=== PATIENT | female | born 1945 | race American Indian/Alaskan Native ===

== ENCOUNTER 2017-02-27 14:58 | Emergency (ER) | payer MEDICARE ==
[2017-02-27 15:38] VITALS: BP 127/70
[2017-02-27] MEDS ORDERED: FUL-GLO OP ONE (17:11)
[2017-02-27] MEDS ORDERED: TETRACAINE 0.5% OU ONE (17:11)
--- NOTE | 2017-02-27 17:27 | Emergency Department Report ---
HPI - General Chief Complaint: Eye Problems Time Seen by Provider: 02/27/17 16:59 - HPI HPI: This is a 71-year-old Afro-[place]ish female who presents to the emergency department with complaint of progressively worsening right eye and eyelid swelling and irritation past 3 days. Patient says that the eye is slightly blurry. She denies any significant pain and says it is more of an irritation. She tried some Visine and some witch shemar to the right eye without much relief. She denies any known trauma but says that she plays with her grandson who is 5 months old and sometimes he will accidentally hit her around the face and eye. She denies any fever, headache, nausea, vomiting. No recent travel or sick contacts at home. She has a primary care doctor but has not seen them regarding the symptoms. She does not have a recycling manager. Patient is wearing reading glasses from a store because her prescription glasses are currently broken. ED Past Medical Hx - Past Medical History Previous Medical History?: Yes Hx Hypertension: Yes Hx CVA: Yes (no residual deficits) Hx Diabetes: Yes - Surgical History Past Surgical History?: Yes Additional Surgical History: hysterectomy - Social History Smoking Status: Never Smoker Substance Use Type: Prescribed - Medications Home Medications: Home Medications Medication Instructions Recorded Confirmed Last Taken Type Atorvastatin Calcium [Lipitor] 1 tab PO QHS 04/16/14 04/16/14 Unknown History Butalb/Acetaminophen/Caffeine 1 tab PO Q6H PRN 04/16/14 04/16/14 Unknown History [[id number] 50-300-40] Ciprofloxacin HCl [Ciprofloxacin 500 mg PO Q12H #20 tab 04/16/14 Unknown Rx TAB] Gabapentin [Neurontin] 1 tab PO BID 04/16/14 04/16/14 Unknown History Gabapentin [Neurontin] 3 tab PO QHS 04/16/14 04/16/14 Unknown History Losartan [Cozaar] 1 tab PO DAILY 04/16/14 04/16/14 Unknown History Metformin HCl [Glucophage] 1 tab PO BID 04/16/14 04/16/14 Unknown History Metoprolol [Lopressor TAB] 1 tab PO BID 04/16/14 04/16/14 Unknown History Topiramate [Topamax SPRINKLE] 2 tab PO QHS 04/16/14 04/16/14 Unknown History amLODIPine [Norvasc] 1 tab PO DAILY 04/16/14 04/16/14 Unknown History glipiZIDE [glipiZIDE ER] 1 tab PO TID 04/16/14 04/16/14 Unknown History levETIRAcetam [Keppra] 1 tab PO Q12H 04/16/14 04/16/14 Unknown History Sulfamethoxazole/Trimethoprim 1 each PO BID #14 tablet 02/27/17 Unknown Rx [Bactrim DS TAB] Tobramycin 0.3% [Tobrex] 1 drop OD Q6H #1 bottle 02/27/17 Unknown Rx ED Review of Systems ROS: Stated complaint: RT EYE SWOLLEN/RED /PAIN Other details as noted in HPI Comment: All other systems reviewed and negative Constitutional: denies: chills, fever Eyes: eye pain (irritation), eye discharge, vision change (slightly blurry right eye) ENT: denies: ear pain, throat pain Respiratory: denies: cough, shortness of breath, wheezing Cardiovascular: denies: chest pain, palpitations Gastrointestinal: denies: abdominal pain, nausea, diarrhea Genitourinary: denies: urgency, dysuria, discharge Musculoskeletal: denies: back pain, joint swelling, arthralgia Skin: change in color (right eyelid redness and swelling). denies: pruritus Neurological: denies: headache, weakness, paresthesias Physical Exam - Physical Exam Vital Signs: Vital Signs 02/27/17 15:34 Temperature 98.1 F Pulse Rate 80 Respiratory 16 Rate Blood Pressure 127/70 O2 Sat by Pulse 98 Oximetry Physical Exam: GENERAL: The patient is well-developed well-nourished. HEENT: Normocephalic. Atraumatic. Extraocular motions are intact. Patient has moist mucous membranes. Pupils equal reactive to light bilaterally. There is no fluorescein uptake to the right eye. No nystagmus. Right upper and lower eyelid have nonpitting swelling and erythema. There is a small amount of white discharge seen to the lateral canthus. NECK: Supple. Trachea is midline. CHEST/LUNGS: Clear to auscultation. There is no respiratory distress noted. HEART/CARDIOVASCULAR: Regular. There is no tachycardia. There is no gallop rub or murmur. ABDOMEN: Abdomen is soft, nontender. Patient has normal bowel sounds. There is no abdominal distention. SKIN: Right upper and lower eyelid have nonpitting swelling and erythema. NEURO: The patient is awake, alert, and oriented. The patient is cooperative. The patient has no focal neurologic deficits. The patient has normal speech and gait. MUSCULOSKELETAL: There is no tenderness or deformity. There is no limitation range of motion. There is no evidence of acute injury. ED Course Vital Signs 02/27/17 15:34 Temperature 98.1 F Pulse Rate 80 Respiratory 16 Rate Blood Pressure 127/70 O2 Sat by Pulse 98 Oximetry ED Medical Decision Making - Lab Data Result diagrams: 02/27/17 17:51 02/27/17 17:51 - Medical Decision Making 71-year-old female presents with a 3 day history of right eye redness, swelling to the right upper and lower eyelid and some discharge now. Most likely patient has some type of reaction or periorbital cellulitis but I wanted to rule out a orbital cellulitis. Patient's labs did not show any leukocytosis. The plan was to get a CT of the face with IV contrast. However the patient says that she has to get home as she has to turn off some alarm goes off every day at 5:30 PM, turn on lites on her house and take care of some things. She attempted to get her daughter and her granddaughter to take care of these things for her so she could continue taking care of here at the hospital they refused to do so and the patient refuses to stay. She understands that if it is a orbital cellulitis that she could have worsening of her symptoms, increased pain, blindness, sepsis but the patient still says she has to go but may come back later. I still give the patient both Tobraex and Bactrim and a referral for ophthalmology but encouraged her to return and she signed out again medical advice. - Differential Diagnosis orbital cellulitis, periorbital cellulitis, blepharitis, allergic reaction, Critical Care Time: No Critical care attestation.: If time is entered above; I have spent that time in minutes in the direct care of this critically ill patient, excluding procedure time. ED Disposition Clinical Impression: Pain, eye, right, Facial swelling, Hyperglycemia Swollen eyelid Qualifiers: Laterality: right Qualified Code(s): H02.843 - Edema of right eye, unspecified eyelid Conjunctivitis Qualifiers: Conjunctivitis type: acute Acute conjunctivitis type: unspecified Laterality: right Qualified Code(s): H10.31 - Unspecified acute conjunctivitis, right eye Disposition: LEFT AGAINST MEDICAL ADVICE Is pt being admited?: No Condition: Stable Instructions: Cellulitis (ED), Conjunctivitis (ED), Eye Pain (ED) Additional Instructions: Please return to the emergency department if you change your mind about further evaluation of your eye pain and facial swelling and for better control of your blood sugar. Despite leaving, I have given you antibiotics for treatment as well as a referral for an recycling manager. Prescriptions: Sulfamethoxazole/Trimethoprim [Bactrim DS TAB] 1 each PO BID #14 tablet Tobramycin 0.3% [Tobrex] 1 drop OD Q6H #1 bottle Referrals: PRIMARY CAREMD [Primary Care Provider] - 3-5 Days CORONA GUARDADO MD [Staff Physician] - 3-5 Days Forms: AMA Form Time of Disposition: 18:42
[2017-02-27] MEDS ORDERED: NACL ONE (18:11)
[2017-02-27 18:29] LABS: Basophils % (Auto) 0.4 % (0.0-1.8); Eosinophils % (Auto) 2.5 % (0.0-4.3); Hematocrit 39.8 % (30.3-42.9); Hemoglobin 13.2 gm/dl (10.1-14.3); Mean Corpuscular HGB Conc 33 % (30-34); Mean Corpuscular Hemoglobin 32 pg (28-32); Mean Corpuscular Volume 98 fl (79-97); Platelet Count 177 K/mm3 (140-440); Red Blood Count 4.08 M/mm3 (3.65-5.03); White Blood Count 7.8 K/mm3 (4.5-11.0)
[2017-02-27 18:32] LABS: BUN/Creatinine Ratio 11.66; Calcium 9.3 mg/dL (8.4-10.2); Chloride 95.5 mmol/L (98-107); Potassium 3.8 mmol/L (3.6-5.0)
== END 2017-02-27 18:42 | disposition left against medical advice (07) ==
LOC: ED 14:58
DX: H02.843 Edema of right eye, unspecified eyelid (principal); H10.31 Unspecified acute conjunctivitis, right eye; R22.0 Localized swelling, mass and lump, head; E11.65 Type 2 diabetes mellitus with hyperglycemia; I10 Essential (primary) hypertension; Z86.73 Personal history of transient ischemic attack (TIA), and cerebral infarction without residual deficits; Z90.710 Acquired absence of both cervix and uterus
CPT/HCPCS: 36415; 80048; 85025; 96372; J1815

== ENCOUNTER 2017-02-28 12:02 | Emergency (ER) | payer MEDICARE ==
[2017-02-28 12:12] VITALS: BP 130/73
== END 2017-02-28 22:00 | disposition left against medical advice (07) ==
LOC: ED 12:02
DX: H57.11 Ocular pain, right eye (principal); Z53.21 Procedure and treatment not carried out due to patient leaving prior to being seen by health care provider

== ENCOUNTER 2018-05-11 16:54 | Emergency (ER) | payer MEDICARE ==
[2018-05-11 17:28] LABS: Hematocrit 32.9 % (30.3-42.9); Hemoglobin 10.4 gm/dl (10.1-14.3); Mean Corpuscular HGB Conc 32 % (30-34); Mean Corpuscular Volume 81 fl (79-97); Platelet Count 264 K/mm3 (140-440); Red Blood Count 4.05 M/mm3 (3.65-5.03)
[2018-05-11 17:30] LABS: Mean Corpuscular Hemoglobin 26 pg (28-32); Red Cell Distribution Width 22.4 % (13.2-15.2)
[2018-05-11 17:34] LABS: BUN/Creatinine Ratio 14; Blood Urea Nitrogen 13 mg/dL (7-17); Calcium 9.6 mg/dL (8.4-10.2); Hemolysis Index 8
[2018-05-11 17:58] LABS: INR 0.89 (0.87-1.13); Partial Thromboplastin Time 21.9 Sec. (24.2-36.6)
[2018-05-11] MEDS ORDERED: K-DUR PO ONE (21:10)
--- NOTE | 2018-05-11 21:11 | Emergency Department Report ---
ED GI Bleed HPI - General Chief complaint: GI Bleed Stated complaint: BLEEDING FROM RECTUM Time Seen by Provider: 05/11/18 21:09 Source: patient, RN notes reviewed Mode of arrival: Ambulatory Limitations: No Limitations - History of Present Illness Initial comments: This is a 72-year-old female who is unknown to this provider, past medical history includes diabetes, hypertension, seizure disorder, high cholesterol. Patient reports having a colonoscopy 4 years ago which she states was negative. She presents to the ER with the complaints of bilateral upper quadrant abdominal pain, and left lower quadrant abdominal pain for the past 4 days, and dark blood clots running out of her rectum. This has been going on for the past couple days. The pain is achy, radiates in the aforementioned locations, and does not have exacerbating or relieving factors. The patient denies headache, neck pain, chest pain, irritative obstructive urinary symptoms, reports that she is not taking oral anticoagulants. MD complaint: blood streaked stool -: Gradual Location: diffuse Quality: cramping Consistency: intermittent Improves with: none Worsens with: none Context: other (patient reports a history of diverticulosis) Associated Symptoms: abdominal pain. denies: nausea, vomiting, epistaxis, fever /chills, headaches, loss of appetite, malaise, easy bruising, rash, other bleeding, shortness of breath, syncope, weakness - Related Data Home Medications Medication Instructions Recorded Confirmed Last Taken Atorvastatin Calcium [Lipitor] 1 tab PO QHS 04/16/14 04/16/14 Unknown Butalb/Acetaminophen/Caffeine 1 tab PO Q6H PRN 04/16/14 04/16/14 Unknown [Pvhpjk-Pcsifuql-Rukb 50-300-40] Gabapentin [Neurontin] 1 tab PO BID 04/16/14 04/16/14 Unknown Gabapentin [Neurontin] 3 tab PO QHS 04/16/14 04/16/14 Unknown Losartan [Cozaar] 1 tab PO DAILY 04/16/14 04/16/14 Unknown Metformin HCl [Glucophage] 1 tab PO BID 04/16/14 04/16/14 Unknown Metoprolol [Lopressor TAB] 1 tab PO BID 04/16/14 04/16/14 Unknown Topiramate [Topamax SPRINKLE] 2 tab PO QHS 04/16/14 04/16/14 Unknown amLODIPine [Norvasc] 1 tab PO DAILY 04/16/14 04/16/14 Unknown glipiZIDE [glipiZIDE ER] 1 tab PO TID 04/16/14 04/16/14 Unknown levETIRAcetam [Keppra] 1 tab PO Q12H 04/16/14 04/16/14 Unknown Previous Rx's Medication Instructions Recorded Last Taken Type Ciprofloxacin HCl [Ciprofloxacin 500 mg PO Q12H #20 tab 04/16/14 Unknown Rx TAB] Sulfamethoxazole/Trimethoprim 1 each PO BID #14 tablet 02/27/17 Unknown Rx [Bactrim DS TAB] Tobramycin 0.3% [Tobrex] 1 drop OD Q6H #1 bottle 02/27/17 Unknown Rx Acetaminophen [Tylenol Arthritis] 650 mg PO Q6HR PRN #30 tablet.er 05/12/18 Unknown Rx Ondansetron [Zofran Odt] 4 mg PO Q8HR PRN #20 tab.rapdis 05/12/18 Unknown Rx Allergies Allergy/AdvReac Type Severity Reaction Status Date / Time No Known Allergies Allergy Verified 04/16/14 20:09 ED Review of Systems ROS: Stated complaint: BLEEDING FROM RECTUM Other details as noted in HPI Comment: All other systems reviewed and negative ED Past Medical Hx - Past Medical History Hx Hypertension: Yes Hx CVA: Yes (no residual deficits) Hx Diabetes: Yes - Surgical History Additional Surgical History: hysterectomy - Social History Smoking Status: Never Smoker Substance Use Type: None - Medications Home Medications: Home Medications Medication Instructions Recorded Confirmed Last Taken Type Atorvastatin Calcium [Lipitor] 1 tab PO QHS 04/16/14 04/16/14 Unknown History Butalb/Acetaminophen/Caffeine 1 tab PO Q6H PRN 04/16/14 04/16/14 Unknown History [Djnkpk-[id number] 50-300-40] Ciprofloxacin HCl [Ciprofloxacin 500 mg PO Q12H #20 tab 04/16/14 Unknown Rx TAB] Gabapentin [Neurontin] 1 tab PO BID 04/16/14 04/16/14 Unknown History Gabapentin [Neurontin] 3 tab PO QHS 04/16/14 04/16/14 Unknown History Losartan [Cozaar] 1 tab PO DAILY 04/16/14 04/16/14 Unknown History Metformin HCl [Glucophage] 1 tab PO BID 04/16/14 04/16/14 Unknown History Metoprolol [Lopressor TAB] 1 tab PO BID 04/16/14 04/16/14 Unknown History Topiramate [Topamax SPRINKLE] 2 tab PO QHS 04/16/14 04/16/14 Unknown History amLODIPine [Norvasc] 1 tab PO DAILY 04/16/14 04/16/14 Unknown History glipiZIDE [glipiZIDE ER] 1 tab PO TID 04/16/14 04/16/14 Unknown History levETIRAcetam [Keppra] 1 tab PO Q12H 04/16/14 04/16/14 Unknown History Sulfamethoxazole/Trimethoprim 1 each PO BID #14 tablet 02/27/17 Unknown Rx [Bactrim DS TAB] Tobramycin 0.3% [Tobrex] 1 drop OD Q6H #1 bottle 02/27/17 Unknown Rx Acetaminophen [Tylenol Arthritis] 650 mg PO Q6HR PRN #30 tablet.er 05/12/18 Unknown Rx Ondansetron [Zofran Odt] 4 mg PO Q8HR PRN #20 tab.rapdis 05/12/18 Unknown Rx ED Physical Exam - General Limitations: No Limitations General appearance: alert, in no apparent distress - Head Head exam: Present: atraumatic, normocephalic - Eye Eye exam: Present: normal appearance, EOMI. Absent: nystagmus - ENT ENT exam: Present: normal exam, normal orophraynx, mucous membranes moist, normal external ear exam - Neck Neck exam: Present: normal inspection, full ROM - Respiratory Respiratory exam: Present: normal lung sounds bilaterally. Absent: respiratory distress, chest wall tenderness - Cardiovascular Cardiovascular Exam: Present: regular rate, normal rhythm, normal heart sounds. Absent: bradycardia, tachycardia, irregular rhythm, systolic murmur, diastolic murmur, rubs, gallop - GI/Abdominal GI/Abdominal exam: Present: soft, normal bowel sounds. Absent: distended, tenderness, guarding, rebound, rigid, pulsatile mass - Rectal Rectal exam: Present: heme (+) stool, other (there is brown stool that is trace guaiac positive. Chaperoned by product support rep A Ketin) - Extremities Exam Extremities exam: Present: normal inspection, full ROM, normal capillary refill. Absent: pedal edema, calf tenderness - Back Exam Back exam: Present: normal inspection, full ROM. Absent: tenderness, CVA tenderness (R), paraspinal tenderness, vertebral tenderness - Neurological Exam Neurological exam: Present: alert, oriented X3, CN II-XII intact, other ( Extraocular movements intact. Tongue midline. No facial droop. Facial sensation intact to light touch in the V1, V2, V3 distribution bilaterally. 5 and 5 strength in 4 extremities.. Sensation is intact to light touch in 4 extremities.). Absent: motor sensory deficit - Psychiatric Psychiatric exam: Present: normal affect, normal mood - Skin Skin exam: Present: warm, dry, intact, normal color. Absent: rash ED Course Vital Signs 05/11/18 05/11/18 05/11/18 16:59 17:04 20:33 Temperature 98.6 F Pulse Rate 96 H Respiratory 18 Rate Blood Pressure Blood Pressure 131/73 [Right] O2 Sat by Pulse 98 100 Oximetry 05/11/18 05/11/18 05/11/18 20:45 21:00 21:15 Temperature Pulse Rate 92 H 86 92 H Respiratory 12 14 12 Rate Blood Pressure 139/69 139/69 144/78 Blood Pressure [Right] O2 Sat by Pulse 100 98 99 Oximetry 05/11/18 05/11/18 05/11/18 21:21 21:23 22:02 Temperature 97.8 F Pulse Rate Respiratory 12 Rate Blood Pressure 144/78 Blood Pressure [Right] O2 Sat by Pulse 99 100 Oximetry 05/11/18 05/11/18 05/11/18 22:15 22:30 22:46 Temperature Pulse Rate Respiratory Rate Blood Pressure 142/64 123/61 144/78 Blood Pressure [Right] O2 Sat by Pulse 100 98 98 Oximetry 05/11/18 05/11/18 05/12/18 23:00 23:15 00:00 Temperature Pulse Rate Respiratory Rate Blood Pressure 126/65 134/68 123/60 Blood Pressure [Right] O2 Sat by Pulse 97 100 99 Oximetry 05/12/18 00:15 Temperature Pulse Rate Respiratory Rate Blood Pressure 121/71 Blood Pressure [Right] O2 Sat by Pulse 99 Oximetry - Reevaluation(s) Reevaluation #1: 05/12/18 00:26 On repeat examination. The patient reports that pain is improved. CT scan with multiple incidental findings, including adenopathy and cecal mass, concerning for colonic malignancy. Extensive discussion had with patient regarding the need for close outpatient follow-up for repeat colonoscopy to exclude cancer. Patient verbalized understanding. No hemodynamic instability at this time, no further episodes of rectal bleeding. She is not obstructed. ED Medical Decision Making - Lab Data Result diagrams: 05/11/18 17:08 05/11/18 17:08 Vital Signs 05/11/18 05/11/18 05/11/18 16:59 17:04 20:33 Temperature 98.6 F Pulse Rate 96 H Respiratory 18 Rate Blood Pressure Blood Pressure 131/73 [Right] O2 Sat by Pulse 98 100 Oximetry 05/11/18 05/11/18 05/11/18 20:45 21:00 21:15 Temperature Pulse Rate 92 H 86 92 H Respiratory 12 14 12 Rate Blood Pressure 139/69 139/69 144/78 Blood Pressure [Right] O2 Sat by Pulse 100 98 99 Oximetry 05/11/18 05/11/18 05/11/18 21:21 21:23 22:02 Temperature 97.8 F Pulse Rate Respiratory 12 Rate Blood Pressure 144/78 Blood Pressure [Right] O2 Sat by Pulse 99 100 Oximetry 05/11/18 22:15 Temperature Pulse Rate Respiratory Rate Blood Pressure 142/64 Blood Pressure [Right] O2 Sat by Pulse 100 Oximetry Labs 05/11/18 05/11/18 05/11/18 17:08 17:08 17:08 WBC 7.9 RBC 4.05 Hgb 10.4 Hct 32.9 MCV 81 MCH 26 L MCHC 32 RDW 22.4 H Plt Count 264 PT 12.5 INR 0.89 APTT 21.9 L Sodium 132 L Potassium 3.3 L Chloride 98.2 Carbon Dioxide 20 L Anion Gap 17 BUN 13 Creatinine 0.9 Estimated GFR > 60 BUN/Creatinine Ratio 14 Glucose 310 H Calcium 9.6 Magnesium Blood Type Antibody Screen 05/11/18 05/11/18 17:08 21:14 WBC RBC Hgb Hct MCV MCH MCHC RDW Plt Count PT INR APTT Sodium Potassium Chloride Carbon Dioxide Anion Gap BUN Creatinine Estimated GFR BUN/Creatinine Ratio Glucose Calcium Magnesium 1.80 Blood Type B POSITIVE Antibody Screen Negative - EKG Data 05/11/18 22:49 Sinus, 87 beats per minute, left ventricular hypertrophy, left axis deviation, left anterior fascicular block, QTC prolonged, abnormal EKG, not a STEMI - Medical Decision Making Differential diagnosis, including but not limited to: Diverticulosis, angiodysplasia, diverticulitis, cancer, tumor, malignancy Assessment and plan: 72-year-old female with crampy abdominal discomfort and reported rectal bleeding. She is afebrile, with reassuring vital signs, clinically sober, and has a benign physical exam with brown stool that is trace guaiac positive. Her symptoms will be treated, and we will obtain a CT scan of the abdomen and pelvis with IV contrast. She reports a negative colonoscopy 4 years ago. Case is discussed with gastroenterology on-call, Dr. Derrell Bartlett. We both agree that the patient is medically suitable to follow-up as an outpatient closely with GI for CAT scan does not show any significant disease. Critical care attestation.: If time is entered above; I have spent that time in minutes in the direct care of this critically ill patient, excluding procedure time. ED Disposition Clinical Impression: Rectal bleeding Disposition: DC-01 TO HOME OR SELFCARE Is pt being admited?: No Does the pt Need Aspirin: No Condition: Stable Instructions: Gastrointestinal Bleeding (ED) Additional Instructions: Do not take metformin for the next 48 hours. Follow up with the listed gastroenterology specialist within the next week. Not following up is recommended May resulted undiagnosed tumor, cancer, malignancy. Take the pain medication, nausea medication as needed/directed. Follow-up with your primary care doctor within the next 4-6 weeks for incidental abnormal EKG. Return to the ER right away with new pain, worsening pain, migration of pain, fevers, chills, lethargy, irritability, projectile vomiting, change in mental status, confusion, inability to tolerate liquid feeds. Please note that CT scan of the abdomen and pelvis demonstrated multiple incidental abnormalities, including mass in the cecum, and enlarged lymph nodes. These findings are concerning for cancer, tumor, malignancy with possible metastatic spread. Therefore, it is very important to follow-up with outpatient gastroenterology as directed to cancerous disease. Referrals: DEDRA BEDOLLA MD [Primary Care Provider] - 3-5 Days DERRELL BARTLETT MD [Staff Physician] - 3-5 Days [facility] [Provider Group] - 3-5 Days Forms: Accompanied Note
[2018-05-11] MEDS ORDERED: NACL 0.9% 500 ML 500 ML IV ONE (22:46)
[2018-05-11] MEDS ORDERED: TYLENOL PO ONE (22:46)
[2018-05-11] MEDS ORDERED: PEPCID IV ONE (22:46)
[2018-05-11] MEDS ORDERED: CARAFATE PO ONE (22:46)
--- NOTE | 2018-05-12 00:19 | Cat Scan Report ---
FINAL REPORT PROCEDURE: CT ABDOMEN PELVIS W CON TECHNIQUE: Computerized axial tomography of the abdomen and pelvis was performed after the IV injection of iodinated nonionic contrast. HISTORY: abd pain gi bleed COMPARISON: No prior studies are available for comparison. FINDINGS: Lower Lung sanders: Small amount of dependent atelectasis visualized. No dense consolidations or effusions are seen. Upper Abdomen: The adrenal glands, the gallbladder, are unremarkable. Pancreas showed no focal abnormality. Liver density appears mildly diffusely decreased suggesting fatty infiltration. There is much greater decreased density in the left lobe of the liver posteriorly seen on image 42 series 2 axial image. This extends transverse 3.6 centimeter and AP 1.6 centimeter. Focal fatty infiltration is suspected. Other masses are felt to be less likely. Kidneys, Ureters and Urinary bladder: Renal cortical cyst visualized upper 3rd left kidney. The kidneys, the ureters and urinary bladder otherwise are unremarkable. Retroperitoneum: Atherosclerotic changes are seen in the abdominal aorta and iliac arteries. No aneurysm is visualized. Nonspecific subcentimeter lymph nodes are seen in the retroperitoneum. No pathologically enlarged lymph nodes are identified. Bowel: Abnormal asymmetric wall thickening is seen in the cecum measuring up to 16 millimeters. This is best visualized on axial image 113 series 2, sagittal reconstruction image 158 series 601 and coronal reconstruction image 73 series 602. Primary malignancy, carcinoma the cecum needs to be excluded. Mild diverticulosis is seen in the left side of the colon without evidence of diverticulitis. Normal-appearing appendix is seen in the right lower quadrant. A mildly enlarged lymph node is seen in the mesentery medial to the cecum on image 101 series 2 measuring 12 millimeters x 14.6 millimeters. Etiology is uncertain. If there is malignancy within the cecum I would not be able to exclude metastatic disease to this lymph node. The morales of the 3rd and 4th portions of the duodenum appear thicker than expected. I cannot exclude nonspecific duodenitis. This appears to extend into the proximal jejunum as well. Reproductive organs: Uterus is surgically absent. No abnormal adnexal masses are seen. Other: There is mild to moderate lumbar scoliosis convex to the left. No acute bony abnormalities are identified. IMPRESSION: Abnormal asymmetric wall thickening seen in the cecum. Primary malignancy of the colon needs to be excluded. Mildly enlarged lymph node medial to the cecum as described. I cannot exclude metastatic disease. Wall thickening seen in the duodenum and proximal jejunum suggesting a nonspecific duodenitis and enteritis. Fatty infiltration of the liver. Additional focal fatty infiltration suspected in the left lobe. A mass in this areas felt to be less likely although not completely excluded. MRI of the liver would be helpful to differentiate these 2 etiologies. Prior hysterectomy. Critical value: I discussed these findings in detail with Dr. Angulo by phone conversation on 05/12/2018 at 12:08 a.m. [place] standard time
[2018-05-12 00:24] VITALS: BP 121/71
== END 2018-05-12 01:04 | disposition home or self-care (01) ==
LOC: ED 16:54
DX: K62.5 Hemorrhage of anus and rectum (principal); I10 Essential (primary) hypertension; E11.9 Type 2 diabetes mellitus without complications; G40.909 Epilepsy, unspecified, not intractable, without status epilepticus; Z86.73 Personal history of transient ischemic attack (TIA), and cerebral infarction without residual deficits; Z90.710 Acquired absence of both cervix and uterus
CPT/HCPCS: 36415; 74177; 80048; 82271; 83735; 85027; 85610; 85730; 86850; 86900; 86901; 93005; 93010; 96374; 99284; J7040; Q9967

== ENCOUNTER 2020-06-13 05:55 | Day surgery (SDC) | payer MEDICARE ==
[2020-06-13] MEDS ORDERED: ASPIRIN EC 325 MG TAB PO ONE (07:04)
[2020-06-13 07:35] LABS: Basophils # (Auto) 0.1 K/mm3 (0.0-0.1); Basophils % (Auto) 0.7 % (0.0-1.8); Eosinophils # (Auto) 0.2 K/mm3 (0.0-0.4); Eosinophils % (Auto) 2.4 % (0.0-4.3); Hematocrit 40.2 % (30.3-42.9); Hemoglobin 13.1 gm/dl (10.1-14.3); Lymphocytes # (Auto) 3.1 K/mm3 (1.2-5.4); Lymphocytes % (Auto) 37.5 % (13.4-35.0); Mean Corpuscular HGB Conc 33 % (30-34); Mean Corpuscular Volume 90 fl (79-97); Monocytes # (Auto) 0.7 K/mm3 (0.0-0.8); Platelet Count 204 K/mm3 (140-440); Red Blood Count 4.46 M/mm3 (3.65-5.03); Red Cell Distribution Width 15.8 % (13.2-15.2)
[2020-06-13 07:40] LABS: INR 0.95 (0.87-1.13)
[2020-06-13 07:50] LABS: Calcium 11.7 mg/dL (8.4-10.2)
[2020-06-13] MEDS ORDERED: SODIUM CHLORIDE 0.9% 500 ML 500 ML IV SCH (08:00)
[2020-06-13 08:03] LABS: Partial Thromboplastin Time 27.7 Sec. (24.2-36.6)
[2020-06-13 08:50] VITALS: BP 117/60
[2020-06-13] MEDS ORDERED: HEPARIN 10,000 UNITS/10 ML VIAL ONE (09:27)
[2020-06-13] MEDS ORDERED: MIDAZOLAM 2 MG/2 ML INJ ONE (09:27)
[2020-06-13] MEDS ORDERED: HEPARIN/NS 5000 UNIT/500ML 0 ML IR ONE (09:27)
[2020-06-13] MEDS ORDERED: VERAPAMIL 5 MG/2 ML INJ ONE (09:28)
[2020-06-13] MEDS ORDERED: fentaNYL 100 MCG/2 ML INJ ONE (09:28)
[2020-06-13] MEDS ORDERED: NITROGLYCERIN SYRINGE 0 ML ONE (09:28)
[2020-06-13] MEDS ORDERED: LIDOCAINE (2%) 20 MG/1 ML VIAL 20 ML MDV INFILTRATI ONE (09:28)
--- NOTE | 2020-06-13 09:47 | Event Note ---
Date: 06/13/20 74-year-old woman who presented for outpatient cardiac catheterization, indication was preoperative eye surgery. She has a history of dilated cardiomyopathy and paroxysmal atrial fibrillation, on Eliquis. Unfortunately, patient has continued inadvertently to take her Eliquis, last dose of 5 mg was last night. As a consequence, the planned procedure will be canceled and postponed to 48 hours following the last Eliquis dose. Patient is asymptomatic, and understands the plan to discontinue Eliquis for 48 hours prior to planned cardiac catheterization. She will continue to take her aspirin 81 mg.
== END 2020-06-13 10:10 | disposition home or self-care (01) ==
LOC: CATH 05:55 → CATHLABREC 05:55
PROVIDERS: ATTEND Internal Medicine Cardiovascular Disease
DX: I42.9 Cardiomyopathy, unspecified (principal); Z53.8 Procedure and treatment not carried out for other reasons; E78.00 Pure hypercholesterolemia, unspecified; H40.9 Unspecified glaucoma; I50.9 Heart failure, unspecified; I48.91 Unspecified atrial fibrillation; K21.9 Gastro-esophageal reflux disease without esophagitis; M19.90 Unspecified osteoarthritis, unspecified site; I11.0 Hypertensive heart disease with heart failure; Z98.890 Other specified postprocedural states; Z79.82 Long term (current) use of aspirin; Z98.41 Cataract extraction status, right eye; Z98.42 Cataract extraction status, left eye; Z98.51 Tubal ligation status; Z90.710 Acquired absence of both cervix and uterus
CPT/HCPCS: 36415; 80048; 85025; 85610; 85730; 93005; J1644; J2250; J3010; J7040